=== PATIENT | male | born 1980 ===

== ENCOUNTER 2020-12-30 03:13 | Inpatient (IN) | payer OTHER ==
[2020-12-30] MEDS ORDERED: SODIUM CHLORIDE 0.9% 1000 ML 1,000 ML IV ONE ×2 (03:54→06:20)
[2020-12-30] MEDS ORDERED: ONDANSETRON 4 MG/2 ML INJ IV ONE (03:54)
[2020-12-30] MEDS ORDERED: HYDROmorphone 1 MG/1 ML INJ IV ONE ×2 (03:54→04:28)
--- NOTE | 2020-12-30 03:55 | Emergency Department Report ---
ED Abdominal Pain HPI - General Chief Complaint: Abdominal Pain Stated Complaint: STOMACH PAIN PUI?: No Time Seen by Provider: 12/30/20 03:52 Source: patient Mode of arrival: Ambulatory Limitations: No Limitations - History of Present Illness Initial Comments: Patient is a 40-year-old male that presents emergency room with complaints of abdominal pain and nausea and vomiting. Patient states has been going on for 24 hours. Patient dates symptoms worsen. Patient dates his pain is a 10-10. Patient states his symptoms started after eating new food. Patient denies blood in his vomitus. Patient denies diarrhea. Patient denies constipation. Patient states his pain is worsening. Patient states his pain is severe. Patient states his pain is stabbing. Patient denies recent travel. Patient denies recent international travel. Patient denies exposure to the novel coronavirus. Patient denies sick contacts. Patient denies fever and chills. Patient denies cough. Patient denies diarrhea. Patient denies coming in contact with anybody with symptoms of the novel coronavirus. MD Complaint: abdominal pain -: Sudden Location: diffuse Radiation: none Migration to: no migration Severity: severe Severity scale (0 -10): 10 Quality: stabbing Consistency: constant Improves With: rest Worsens With: vomiting, movement Associated Symptoms: nausea, vomiting, anorexia. denies: diarrhea, fever, chills, constipation, dysuria, hematemesis, hematochezia, melena, hematuria, syncope - Related Data Allergies Allergy/AdvReac Type Severity Reaction Status Date / Time No Known Allergies Allergy Unverified 12/30/20 03:24 ED Review of Systems ROS: Stated complaint: STOMACH PAIN Other details as noted in HPI Constitutional: denies: chills, fever Eyes: denies: eye pain, eye discharge, vision change ENT: denies: ear pain, throat pain Respiratory: denies: cough, shortness of breath, wheezing Cardiovascular: denies: chest pain, palpitations Endocrine: no symptoms reported Gastrointestinal: as per HPI, abdominal pain, nausea, vomiting. denies: diarrhea Genitourinary: denies: urgency, dysuria Musculoskeletal: denies: back pain, joint swelling, arthralgia Skin: denies: rash, lesions Neurological: denies: headache, weakness, paresthesias Psychiatric: denies: anxiety, depression Hematological/Lymphatic: denies: easy bleeding, easy bruising ED Past Medical Hx - Past Medical History Previous Medical History?: No - Surgical History Past Surgical History?: No - Family History Family history: no significant - Social History Smoking Status: Never Smoker Substance Use Type: None ED Physical Exam - General Limitations: No Limitations General appearance: alert, in no apparent distress - Head Head exam: Present: atraumatic, normocephalic - Eye Eye exam: Present: normal appearance - ENT ENT exam: Present: mucous membranes moist - Neck Neck exam: Present: normal inspection - Respiratory Respiratory exam: Present: normal lung sounds bilaterally. Absent: respiratory distress - Cardiovascular Cardiovascular Exam: Present: regular rate, normal rhythm. Absent: systolic murmur, diastolic murmur, rubs, gallop - GI/Abdominal GI/Abdominal exam: Present: soft, tenderness (Generalized tenderness to palpation), normal bowel sounds - Rectal Rectal exam: Present: deferred - Extremities Exam Extremities exam: Present: normal inspection - Back Exam Back exam: Present: normal inspection - Neurological Exam Neurological exam: Present: alert, oriented X3 - Psychiatric Psychiatric exam: Present: normal affect, normal mood - Skin Skin exam: Present: warm, dry, intact, normal color. Absent: rash ED Course Vital Signs 12/30/20 12/30/20 12/30/20 03:21 03:43 04:27 Temperature 98.6 F Pulse Rate 66 Respiratory 18 18 18 Rate Blood Pressure 120/81 O2 Sat by Pulse 94 94 Oximetry - Reevaluation(s) Reevaluation #1: I discussed all results with patient. I discussed plan of care with patient. Patient agrees with plan of care and admission. Patient to be admitted to the hospitalist service. Patient states his pain is better after the 2 doses of Dilaudid. 12/30/20 06:17 - Consultations Consultation #1: I discussed case with general surgery, Dr. Alford. Dr. Alford recommends admission to the hospital service, n.p.o. and she will see the patient today. 12/30/20 06:10 Consultation #2: Hospitalist consulted for admission. Hospitalist to admit patient. 12/30/20 06:15 ED Medical Decision Making - Lab Data Result diagrams: 12/30/20 03:30 12/30/20 03:30 - Radiology Data Radiology results: report reviewed CT ABDOMEN AND PELVIS WITH CONTRAST INDICATION / CLINICAL INFORMATION: abd pain. TECHNIQUE: Axial CT images were obtained through the abdomen and pelvis after 100 mL Omnipaque [address] scans at this location are performed using CT dose reduction for ALARA by means of automated exposure control. COMPARISON: None available. FINDINGS: LOWER CHEST: No significant abnormality. LIVER: Hepatic steatosis. BILIARY SYSTEM: No significant abnormality. PANCREAS: No significant abnormality. SPLEEN: No significant abnormality. ADRENALS: No significant abnormality. KIDNEYS and URETERS: No significant abnormality. STOMACH / BOWEL: The appendix is dilated, measuring up to 1.3 cm in diameter, with several small appendicolith noted in the lumen and surrounding periappendiceal inflammatory change. Additionally, there are multiple inflamed loops of small bowel in the right lower quadrant with associated wall thickening and perienteric inflammatory change. There is no evidence of extraluminal air or fluid collection. PERITONEUM: Small pelvic free fluid. No free air. No fluid collection. LYMPH NODES: No significant adenopathy. VASCULAR STRUCTURES: No significant abnormality. URINARY BLADDER: No significant abnormality. REPRODUCTIVE ORGANS: No significant abnormality. ADDITIONAL FINDINGS: None. SKELETAL SYSTEM: There is moderate degenerative disc disease at L3-4, with associated endplate irregularity and lucent lesions in both the L3 and L4 vertebral body, the majority of which appear contiguous with the disc space. IMPRESSION: 1. Dilated and inflamed appendix containing several appendicoliths. There are nearby inflamed loops of small bowel in the right lower quadrant suggesting enteritis. It is uncertain if the appendiceal inflammation represents primary appendicitis versus reactive inflammation from the adjacent small bowel process. 2. Degenerative change at L3-4 with associated endplate irregularity and prominent lucent lesions seen in both the L3 and L4 vertebral body, many of which appear contiguous with the disc space. These may reflect prominent Schmorl's nodes, though recommend correlation for focal tenderness in this area. If there is focal clinical concern, an MRI of the lumbar spine could be performed for further characterization. 3. Hepatic steatosis. - Medical Decision Making Patient is a 40-year-old male who presents emergency room with complaints of severe abdominal pain, nausea vomiting x1 day. Patient states that overall anything down. Patient states the pain is generalized. Patient had labs done which showed an elevated WBC. Patient then had a CT scan of the abdomen which shows an acute appendicitis versus enteritis. I discussed the case with general surgery general surgery recommends admission to the hospitalist group and general surgery will consult on the patient. Patient required high dose of Dilaudid in order to control his pain. Patient was given Zofran and fluids while in the ER. Patient made n.p.o. for possible surgery. Patient given Zosyn to cover intra-abdominal infection. Critical care time documented due to the multiple reassessments, prolonged time at the bedside, interpretation of diagnostics and labs. - Differential Diagnosis Appendicitis, abdominal pain, enteritis, gastritis,n/v Critical Care Time: Yes Critical care time in (mins) excluding proc time.: 35 Critical care attestation.: If time is entered above; I have spent that time in minutes in the direct care of this critically ill patient, excluding procedure time. Critical Care Time: 35 minutes ED Disposition Clinical Impression: Enteritis Abdominal pain Qualifiers: Abdominal location: generalized Qualified Code(s): R10.84 - Generalized abdominal pain Nausea & vomiting Qualifiers: Vomiting type: unspecified Vomiting Intractability: non-intractable Qualified Code(s): R11.2 - Nausea with vomiting, unspecified Appendicitis Qualifiers: Appendicitis type: acute appendicitis Acute appendicitis type: unspecified acute appendicitis type Qualified Code(s): K35.80 - Unspecified acute appendicitis Disposition: 09 OP ADMIT IP TO THIS HOSP Is pt being admited?: Yes Does the pt Need Aspirin: No Condition: Critical Time of Disposition: 06:18
[2020-12-30 04:26] LABS: Alanine Aminotransferase 65 units/L (7-56); Albumin 4.8 g/dL (3.9-5); BUN/Creatinine Ratio 20; Blood Urea Nitrogen 18 mg/dL (9-20); Calcium 9.9 mg/dL (8.4-10.2); Hemolysis Index 4
[2020-12-30 04:28] LABS: Basophils % (Auto) 0.2 % (0.0-1.8); Hematocrit 49.8 % (35.5-45.6); Hemoglobin 16.8 gm/dl (11.8-15.2); Lymphocytes # (Auto) 0.9 K/mm3 (1.2-5.4); Lymphocytes % (Auto) 6.2 % (13.4-35.0); Mean Corpuscular HGB Conc 34 % (32-34); Mean Corpuscular Volume 92 fl (84-94); Monocytes # (Auto) 0.6 K/mm3 (0.0-0.8); Monocytes % (Auto) 4.3 % (0.0-7.3); Platelet Count 228 K/mm3 (140-440); Red Blood Count 5.43 M/mm3 (3.65-5.03); Red Cell Distribution Width 13.1 % (13.2-15.2)
--- NOTE | 2020-12-30 05:37 | Cat Scan Report ---
CT ABDOMEN AND PELVIS WITH CONTRAST INDICATION / CLINICAL INFORMATION: abd pain. TECHNIQUE: Axial CT images were obtained through the abdomen and pelvis after 100 mL Omnipaque [address] scans at this location are performed using CT dose reduction for ALARA by means of automated exposure control. COMPARISON: None available. FINDINGS: LOWER CHEST: No significant abnormality. LIVER: Hepatic steatosis. BILIARY SYSTEM: No significant abnormality. PANCREAS: No significant abnormality. SPLEEN: No significant abnormality. ADRENALS: No significant abnormality. KIDNEYS and URETERS: No significant abnormality. STOMACH / BOWEL: The appendix is dilated, measuring up to 1.3 cm in diameter, with several small appe ndicolith noted in the lumen and surrounding periappendiceal inflammatory change. Additionally, there are multiple inflamed loops of small bowel in the right lower quadrant with associated wall thickeni ng and perienteric inflammatory change. There is no evidence of extraluminal air or fluid collection. PERITONEUM: Small pelvic free fluid. No free air. No fluid collection. LYMPH NODES: No significant adenopathy. VASCULAR STRUCTURES: No significant abnormality. URINARY BLADDER: No significant abnormality. REPRODUCTIVE ORGANS: No significant abnormality. ADDITIONAL FINDINGS: None. SKELETAL SYSTEM: There is moderate degenerative disc disease at L3-4, with associated endplate irregu larity and lucent lesions in both the L3 and L4 vertebral body, the majority of which appear contiguo us with the disc space. IMPRESSION: 1. Dilated and inflamed appendix containing several appendicoliths. There are nearby inflamed loops o f small bowel in the right lower quadrant suggesting enteritis. It is uncertain if the appendiceal in flammation represents primary appendicitis versus reactive inflammation from the adjacent small bowel process. 2. Degenerative change at L3-4 with associated endplate irregularity and prominent lucent lesions see n in both the L3 and L4 vertebral body, many of which appear contiguous with the disc space. These ma y reflect prominent Schmorl's nodes, though recommend correlation for focal tenderness in this area. If there is focal clinical concern, an MRI of the lumbar spine could be performed for further charact erization. 3. Hepatic steatosis. Signer Name: Claudine Hay MD Signed: 12/30/2020 5:32 AM Workstation Name: [id number]
[2020-12-30] MEDS ORDERED: PIPERACIL/TAZOBACTA 4.5/NS 100 4.5 GM/100 ML VIAL IV ONE (06:16)
[2020-12-30 06:45] LABS: INR 0.99 (0.87-1.13)
[2020-12-30 06:46] LABS: Partial Thromboplastin Time 29.6 Sec. (24.2-36.6)
[2020-12-30] MEDS ORDERED: HYDROmorphone 1 MG/1 ML INJ ONE ×2 (06:55→09:35)
--- NOTE | 2020-12-30 09:17 | Consultation ---
History of Present Illness Consult date: 12/30/20 Reason for consult: abdominal pain - History of present illness History of present illness: 40 year old male presented to ED with a 1-2 day of worsening abdominal pain, n/v. He said the pain was 10/10 and eventually localized to the RLQ. He denies having this pain before. A CT showed inflamed, dilated appendix with appendicoliths suggestive appendicitis. Past History Past Medical History: No medical history Past Surgical History: No surgical history Medications and Allergies Allergies Allergy/AdvReac Type Severity Reaction Status Date / Time No Known Allergies Allergy Unverified 12/30/20 03:24 Active Meds: Active Medications Sodium Chloride (Nacl 0.9% 1000 Ml) 1,000 mls @ 250 mls/hr IV ONCE ONE Stop: 12/30/20 10:19 Last Admin: 12/30/20 07:03 Dose: 250 mls/hr Documented by: Review of Systems - Constitutional poor appetite - Cardiovascular no chest pain - Respiratory no cough, no shortness of breath - Gastrointestinal abdominal pain, nausea, vomiting - Genitourinary no dysuria Exam Vital Signs Temp Pulse Resp BP Pulse Ox 98.6 F 66 18 120/81 94 12/30/20 03:21 12/30/20 03:21 12/30/20 03:21 12/30/20 03:21 12/30/20 03:21 - General physical appearance Positive: well developed, well nourished, no distress, moderate pain - Respiratory Positive: normal expansion, normal respiratory effort - Cardiovascular Heart Sounds: Present: S1 & S2 - Abdomen Abdomen: Present: soft, tender. Absent: distended, guarding, rigid, surgical scars Results - Labs 12/30/20 03:30 12/30/20 03:30 Abnormal lab results 12/30/20 12/30/20 Range/Units 03:30 03:30 WBC 15.1 H (4.5-11.0) K/mm3 RBC 5.43 H (3.65-5.03) M/mm3 Hgb 16.8 H (11.8-15.2) gm/dl Hct 49.8 H (35.5-45.6) % RDW 13.1 L (13.2-15.2) % Lymph % (Auto) 6.2 L (13.4-35.0) % Lymph # (Auto) 0.9 L (1.2-5.4) K/mm3 Seg Neutrophils % 89.3 H (40.0-70.0) % Seg Neutrophils # 13.5 H (1.8-7.7) K/mm3 Sodium 136 L (137-145) mmol/L Chloride 97.1 L (98-107) mmol/L Glucose 128 H (75-100) mg/dL ALT 65 H (7-56) units/L Diabetes panel 12/30/20 Range/Units 03:30 Sodium 136 L (137-145) mmol/L Potassium 3.7 (3.6-5.0) mmol/L Chloride 97.1 L (98-107) mmol/L Carbon Dioxide 24 (22-30) mmol/L BUN 18 (9-20) mg/dL Creatinine 0.9 (0.8-1.3) mg/dL Glucose 128 H (75-100) mg/dL Calcium 9.9 (8.4-10.2) mg/dL AST 32 (5-40) units/L ALT 65 H (7-56) units/L Alkaline Phosphatase 105 (35-129) units/L Total Protein 7.5 (6.3-8.2) g/dL Albumin 4.8 (3.9-5) g/dL Calcium panel 12/30/20 Range/Units 03:30 Calcium 9.9 (8.4-10.2) mg/dL Albumin 4.8 (3.9-5) g/dL Pituitary panel 12/30/20 Range/Units 03:30 Sodium 136 L (137-145) mmol/L Potassium 3.7 (3.6-5.0) mmol/L Chloride 97.1 L (98-107) mmol/L Carbon Dioxide 24 (22-30) mmol/L BUN 18 (9-20) mg/dL Creatinine 0.9 (0.8-1.3) mg/dL Glucose 128 H (75-100) mg/dL Calcium 9.9 (8.4-10.2) mg/dL Adrenal panel 12/30/20 Range/Units 03:30 Sodium 136 L (137-145) mmol/L Potassium 3.7 (3.6-5.0) mmol/L Chloride 97.1 L (98-107) mmol/L Carbon Dioxide 24 (22-30) mmol/L BUN 18 (9-20) mg/dL Creatinine 0.9 (0.8-1.3) mg/dL Glucose 128 H (75-100) mg/dL Calcium 9.9 (8.4-10.2) mg/dL Total Bilirubin 1.10 (0.1-1.2) mg/dL AST 32 (5-40) units/L ALT 65 H (7-56) units/L Alkaline Phosphatase 105 (35-129) units/L Total Protein 7.5 (6.3-8.2) g/dL Albumin 4.8 (3.9-5) g/dL - Imaging CT scan - abdomen: report reviewed, image reviewed CT scan - pelvis: report reviewed, image reviewed Assessment and Plan 40 year old male with clinical appendicitis. Afebrile, stable with leukocytosis. Pt is consented for laparoscopic appendectomy. He signed informed consent with a shop firer/fireman. If he recovers well can be discharged tomorrow.
[2020-12-30] MEDS ORDERED: LIDOCAINE 1%/EPINEPHRINE 1:100,000 VIAL (20 ML) INFILTRATI ONE ×2 (09:20→10:28)
[2020-12-30] MEDS ORDERED: BUPIVACAINE/PF (0.5%) 5 MG/1 ML 30 ML VIAL INFILTRATI ONE ×2 (09:20→10:28)
--- NOTE | 2020-12-30 09:32 | Anesthesia Consultation ---
Anesthesia Consult and Med Hx Date of service: 12/30/20 - Airway Anesthetic Teeth Evaluation: Good (Loose right upper incisor) ROM Head & Neck: Adequate Mental/Hyoid Distance: Adequate Mallampati Class: Class II Intubation Access Assessment: Probably Good - Pulmonary Exam CTA: Yes - Pre-Operative Health Status ASA Pre-Surgery Classification: ASA2 Proposed Anesthetic Plan: General - Pulmonary Hx Smoking: Yes Hx Asthma: No Hx Respiratory Symptoms: No Hx Sleep Apnea: No - Cardiovascular System Hx Hypertension: No Hx Heart Attack/AMI: No - Central Nervous System Hx Neuromuscular Disorder: No Hx Seizures: No Hx Psychiatric Problems: No - Endocrine Hx Renal Disease: No Hx Liver Disease: No Hx Insulin Dependent Diabetes: No Hx Non-Insulin Dependent Diabetes: No Hx Thyroid Disease: No - Hematic Hx Anemia: No - Other Systems Hx Alcohol Use: Yes Hx Obesity: Yes - Additional Comments Anesthesia Medical History Comments: Patient denied previous anesthesia complication
--- NOTE | 2020-12-30 09:33 | Anesthesia Day of Surgery ---
Anesthesia Day of Surgery - Day of Surgery Patient Examined: Yes Patient H&P Reviewed: Yes Patient is NPO: Yes Beta Blockers: No Cardiac Clearance: No Pulmonary Clearance: No Justin's Test: N/A
[2020-12-30] MEDS ORDERED: LIDOCAINE MPF (2%) 20 MG/1 ML VIAL 5 ML ONE (09:34)
[2020-12-30] MEDS ORDERED: ROCURONIUM 50 MG/5 ML INJ IV ONE ×2 (09:34→10:37)
[2020-12-30] MEDS ORDERED: dexAMETHasone 20 MG/5 ML VIAL ONE (09:34)
[2020-12-30] MEDS ORDERED: ONDANSETRON 4 MG/2 ML INJ ONE (09:34)
[2020-12-30] MEDS ORDERED: SUCCINYLCHOLINE CHLORIDE 200 MG/10 ML INJ MDV ONE (09:34)
[2020-12-30] MEDS ORDERED: propofoL 200 MG/20 ML VIAL IV ONE (09:35)
[2020-12-30] MEDS ORDERED: LACTATED RINGERS 1,000 ML ONE ×2 (10:16→11:12)
[2020-12-30] MEDS ORDERED: SODIUM CHLORIDE 0.9% IRRIG SOLN 2000 ML IR ONE (10:29)
[2020-12-30] MEDS ORDERED: SODIUM CHLORIDE 0.9% IRR 1,500 ML BOTTLE IR ONE (10:29)
[2020-12-30] MEDS ORDERED: KETOROLAC 30 MG/1 ML INJ ONE ×2 (11:00)
[2020-12-30] MEDS ORDERED: NEOSTIGMINE 10MG/10 ML INJ MDV ONE (11:12)
[2020-12-30] MEDS ORDERED: GLYCOPYRROLATE 0.4 MG/2 ML INJ ONE (11:12)
--- NOTE | 2020-12-30 11:23 | Operative Report ---
Operative Report Operative Report: Date: 12/30/2020 Primary Surgeon: Connor Alford MD Procedure: Laparoscopic Appendectomy Anesthesia: GETA Pre-Operative Diagnosis: acute appendicitis Post-Operative Diagnosis: Same Indications for Procedure: 40 year old male presented to ED with 2 day hx of acute abdominal pain with nausea vomiting. CT scan showed a dilated inflamed appendix with appendicolith. Patient had clinical and radiographic findings suggestive of acute appendicitis with leukocytosis. With the aid of an lunchroom operator the patient was consented for laparoscopic appendectomy. He expressed understanding of the risk and benefits. Description of Procedure(s): The patient was brought to the operating room and underwent general anesthesia after lower extremity SCD were placed. The abdomen was prepped and draped in the standard fashion. IV antibiotics were given and a time out was performed. Using a veress needle via a stab incision in the umbilicus, the abdomen was insuflated to a pressure of 15mmHg. Using optivew technique, a 5mm trocar was placed just superior and to the left of the umbilicus. There was no gross injury noted to any intra-abdominal structures. After which working trocars were placed under direct visualization. A 12 mm trocar was placed in left mid abdomen, and a 5 mm trocar was inserted in the suprapubic area. The patient was placed in slight Trendelenburg position and tilted towards her left side. The cecum was identified and mobilized, as well as the terminal ileum. There was noted to be murky fluid and fibrinous exudate in the right lower quadrant, along with hyperemia of adjacent small bowel loops. There were no gross signs of perforation or well-formed abscess. The appendix was noted to be retrocecal. The mesoappendix was transected with the LigaSure. The appendix was then taken at its base with a blue load on a laparoscopic stapler. The staple line was inspected and found to be hemostatically sound and secure. There was moderate irrigation of the right lower quadrant and pelvic area where the murky fluid was most appreciated. The appendix was placed in Endo Catch bag. A 19 Gabonese round drain was placed into the pelvis and exited out of the suprapubic incision. It was then retrieved via the 12 mm trocar. The fascia was then closed using a O-vicryl and a suture passer device. Trocars removed under direct visualization. The insufflation was then terminated. The skin incisions were closed using 4-0 Monocryl sutures. All the wounds dressed with dermabond. The patient tolerated the procedure well, was extubated and taken to the recovery room in satisfactory condition. Specimen: appendix Complications: none immediate EBl: minimal Findings: Exudative appendicitis with no gross perforation appreciated
[2020-12-30] MEDS ORDERED: ONDANSETRON 4 MG/2 ML INJ IV PRN (11:30)
[2020-12-30] MEDS ORDERED: HYDROmorphone 1 MG/1 ML INJ IV PRN (11:30)
--- NOTE | 2020-12-30 11:58 | Post Anesthesia Evaluation ---
- Post Anesthesia Evaluation Patient Participated: Yes Airway Patent: Yes Stable Respiratory Function: Yes Nausea/Vomiting: No Temp > 96.8F: Yes Pain Manageable: Yes Adequeate Hydration: Yes Anesthesia Complications: No Block Receding Appropriately: Not Applicable Patient on Ventilator: No
[2020-12-30] MEDS ORDERED: oxyCODONE /ACETAMINOPHEN 5-325MG TAB PO PRN (12:11)
--- NOTE | 2020-12-30 13:13 | History and Physical Report ---
History of Present Illness Date of examination: 12/30/20 Date of admission: 12/30/20 06:15 Chief complaint: Abdominal pain nausea and vomiting History of present illness: Patient is a 40-year-old male with no prior medical history presents emergency room today with complaints of abdominal pain and nausea and vomiting for 24 hours. Patient states his abdominal pain is 10 out of 10, sharp crampy, diffuse, without any aggravating or relieving factors, associated with nausea and vomiting. Patient denies any bloody vomit. CT abdomen pelvis in the ER keenan wed Dilated and inflamed appendix containing several appendicoliths, nearby inflamed loops of small bowel in the right lower quadrant suggesting enteritis. Patient was placed on empiric antibiotics, IV analgesic, IV fluid, consulted general surgeon in the ER for emergent laparoscopic appendectomy. Patient is being admitted by hospitalist service for further evaluation and management. Past medical History: none Past surgical History: none Social History: Lives with family, denies any smoking, drinking and elicit drug abuse. Family History: No Significant h/o heart disease, diabetes stroke or cancer Constitutional: denies: chills, fever Eyes: denies: eye pain, eye discharge, vision change ENT: denies: ear pain, throat pain Respiratory: denies: cough, shortness of breath, wheezing Cardiovascular: denies: chest pain, palpitations Endocrine: no symptoms reported Gastrointestinal: as per HPI, abdominal pain, nausea, vomiting. denies: diarrhea Genitourinary: denies: urgency, dysuria Musculoskeletal: denies: back pain, joint swelling, arthralgia Skin: denies: rash, lesions Neurological: denies: headache, weakness, paresthesias Psychiatric: denies: anxiety, depression Hematological/Lymphatic: denies: easy bleeding, easy bruising Past History Past Medical History: No medical history Past Surgical History: No surgical history Medications and Allergies Allergies Allergy/AdvReac Type Severity Reaction Status Date / Time No Known Allergies Allergy Unverified 12/30/20 03:24 Home Medications Medication Instructions Recorded Confirmed Last Taken Type Amoxicillin/Potassium Clav 1 each PO BID #10 tablet 12/31/20 Unknown Rx [Augmentin 875-125 Tablet] HYDROcodone/APAP 5-325 [[place] 1 each PO Q6HR PRN #14 tablet 12/31/20 Unknown Rx 5/325] Active Meds: Active Medications Hydromorphone HCl (Hydromorphone 1 Mg/1 Ml Inj) 0.5 mg IV Q10MIN PRN PRN Reason: Pain , Severe (7-10) Stop: 12/31/20 11:29 Piperacillin Sod/Tazobactam Sod (Zosyn/Ns 4.5gm/100ml) 4.5 gm in 100 mls @ 200 mls/hr IV Q6H STEVE; Protocol Lactated Ringer's (Lactated Ringers) 1,000 mls @ 125 mls/hr IV DIRECT STEVE Ketorolac Tromethamine (Ketorolac 30 Mg/1 Ml Inj) 30 mg IV Q8H STEVE Stop: 01/04/21 12:10 Morphine Sulfate (Morphine 2 Mg/1 Ml Inj) 2 mg IV Q4H PRN PRN Reason: Pain , Severe (7-10) Ondansetron HCl (Ondansetron 4 Mg/2 Ml Inj) 4 mg IV ONCE PRN PRN Reason: Nausea And Vomiting Oxycodone/Acetaminophen (Oxycodone /Acetaminophen 5-325mg Tab) 2 tab PO Q4H PRN PRN Reason: Pain, Moderate (4-6) Exam - Physical Exam Narrative exam: GENERAL: well-developed and well-nourished lying on bed appeared to be in no discomfort. HEENT: Normocephalic. Atraumatic. No conjunctival congestion or icterus. Patient has moist mucous membranes. NECK: Supple. Trachea midline. CHEST/LUNGS: Clear to auscultated bilaterally, breathing nonlabored. No wheezes crackles or rhonchi. HEART/CARDIOVASCULAR: Regular in rate and rhythm. S1 and S2 positive. ABDOMEN: Abdomen is soft, nontender. Patient has normal bowel sounds. SKIN: There is no rash. Warm and dry. NEURO: No focal motor deficit. Follows command. MUSCULOSKELETAL: No joint effusion or tenderness. EXTRIMITY: No edema, no cyanosis or clubbing. PSYCH: Cooperative. - Constitutional Vitals: Temp Pulse Resp BP Pulse Ox 97.7 F 75 20 103/65 96 12/30/20 12:15 12/30/20 12:15 12/30/20 12:15 12/30/20 12:15 12/30/20 12:15 Results - Labs CBC & Chem 7: 12/31/20 07:57 12/31/20 07:57 Labs: Abnormal lab results 12/30/20 12/30/20 Range/Units 03:30 03:30 WBC 15.1 H (4.5-11.0) K/mm3 RBC 5.43 H (3.65-5.03) M/mm3 Hgb 16.8 H (11.8-15.2) gm/dl Hct 49.8 H (35.5-45.6) % RDW 13.1 L (13.2-15.2) % Lymph % (Auto) 6.2 L (13.4-35.0) % Lymph # (Auto) 0.9 L (1.2-5.4) K/mm3 Seg Neutrophils % 89.3 H (40.0-70.0) % Seg Neutrophils # 13.5 H (1.8-7.7) K/mm3 Sodium 136 L (137-145) mmol/L Chloride 97.1 L (98-107) mmol/L Glucose 128 H (75-100) mg/dL ALT 65 H (7-56) units/L - Imaging and Cardiology CT scan - abdomen: report reviewed Assessment and Plan Acute appendicitis -General surgeon consulted in the ER -Patient was given IV fluid, IV Dilaudid, started on empirically on iv Zosyn -Patient taken to the OR for emergent appendectomy -Continue to follow -Mild hyponatremia, continue IV fluid Abdominal pain, nausea and vomiting -Due to acute appendicitis, treat with IV analgesic, IV antiemetic -General surgery consulted for appendectomy SIRS, due to acute appendicitis, continue empiric Zosyn for now L3-L4 vertebral body lesion, patient need MRI of the lumbar spine for further characterization -Could be done as an outpatient following appendectomy DVT prophylaxis, will provide Lovenox following surgery CT abdomen pelvis: 1. Dilated and inflamed appendix containing several appendicoliths. There are nearby inflamed loops of small bowel in the right lower quadrant suggesting enteritis. It is uncertain if the appendiceal inflammation represents primary appendicitis versus reactive inflammation from the adjacent small bowel process. 2. Degenerative change at L3-4 with associated endplate irregularity and prom inent lucent lesions seen in both the L3 and L4 vertebral body, many of which appear contiguous with the disc space. These may reflect prominent Schmorl's nodes, though recommend correlation for focal tenderness in this area. If there is focal clinical concern, an MRI of the lumbar spine could be performed for further characterization. 3. Hepatic steatosis.
[2020-12-30] MEDS: LACTATED RINGERS 1,000 ML IV SCH (17:00)
[2020-12-30] MEDS: KETOROLAC 30 MG/1 ML INJ IV SCH (17:00)
[2020-12-30] MEDS: PIPERACIL/TAZOBACTA 4.5/NS 100 4.5 GM/100 ML VIAL IV SCH ×2 (17:00→23:00)
[2020-12-31] MEDS: KETOROLAC 30 MG/1 ML INJ IV SCH ×4 (01:00→20:48)
[2020-12-31] MEDS: LACTATED RINGERS 1,000 ML IV SCH (04:00)
[2020-12-31] MEDS: MORPHINE 2 MG/1 ML INJ IV PRN ×2 (05:30→17:25)
[2020-12-31] MEDS: PIPERACIL/TAZOBACTA 4.5/NS 100 4.5 GM/100 ML VIAL IV SCH ×4 (05:33→20:48)
[2020-12-31 08:29] LABS: Basophils % (Auto) 0.2 % (0.0-1.8); Hematocrit 39.3 % (35.5-45.6); Hemoglobin 13.4 gm/dl (11.8-15.2); Lymphocytes # (Auto) 1.1 K/mm3 (1.2-5.4); Lymphocytes % (Auto) 9.8 % (13.4-35.0); Mean Corpuscular HGB Conc 34 % (32-34); Mean Corpuscular Volume 93 fl (84-94); Monocytes # (Auto) 0.3 K/mm3 (0.0-0.8); Platelet Count 140 K/mm3 (140-440); Red Blood Count 4.24 M/mm3 (3.65-5.03)
[2020-12-31 08:49] LABS: BUN/Creatinine Ratio 15; Blood Urea Nitrogen 16 mg/dL (9-20); Calcium 8.2 mg/dL (8.4-10.2); Hemolysis Index 8
--- NOTE | 2020-12-31 11:36 | Discharge Summary ---
Providers - Providers Date of Admission: 12/30/20 06:15 Date of discharge: 01/02/21 Attending physician: EDNA TERRAZAS 12/30/20 06:14 Consult to Physician [CONS] Routine Comment: Dr. Yap spoke with Dr. Alford @ [phone] Consulting Provider: JONAS ALFORD Physician Instructions: Reason For Exam: Appendicitis Primary care physician: POLICE LIEUTENANT PATROL Hospitalization Condition: Critical Hospital course: Patient is a 40-year-old male with no prior medical history presents emergency room today with complaints of abdominal pain and nausea and vomiting for 24 hours. Patient states his abdominal pain is 10 out of 10, sharp crampy, diffuse, without any aggravating or relieving factors, associated with nausea and vomiting. Patient denies any bloody vomit. CT abdomen pelvis in the ER showed Dilated and inflamed appendix containing several appendicoliths, nearby inflamed loops of small bowel in the right lower quadrant suggesting enteritis. Patient was placed on empiric antibiotics, IV analgesic, IV fluid, consulted general surgeon in the ER for emergent laparoscopic appendectomy. Patient was admitted for further evaluation and management. Patient underwent emergent laparoscopic appendectomy with TESSA drain, he tolerated the procedure well. Advance diet as tolerated. CT abdomen pelvis also noted questionable L3-L4 vertebral body lesion and recommended MRI of the lumbar spine by radiologist. MRI lumbar spine showed no acute finding except degenerative changes. General surgery recommended to watch patient couple more days following discharge as patient had exudative appendicitis which has high risks for developing ileus following surgery. Patient was slowly advanced to clear liquid diet then full liquid diet and he was able to tolerate. TESSA drain was removed before discharge. Patient was then discharged home in stable condition with outpatient follow-up. CT abdomen pelvis: 1. Dilated and inflamed appendix containing several appendicoliths. There are nearby inflamed loops of small bowel in the right lower quadrant suggesting enteritis. It is uncertain if the appendiceal inflammation represents primary appendicitis versus reactive inflammation from the adjacent small bowel process. 2. Degenerative change at L3-4 with associated endplate irregularity and prominent lucent lesions seen in both the L3 and L4 vertebral body, many of which appear contiguous with the disc space. These may reflect prominent Schmorl's nodes, though recommend correlation for focal tenderness in this area. If there is focal clinical concern, an MRI of the lumbar spine could be performed for further characterization. 3. Hepatic steatosis. MRI LUMBER SPINE: 1. There is notable irregularity of the L3-4 disc space and adjacent vertebral bodies which correlates with the earlier CT of abdomen of 12/30/2020. However, the heterogeneous signal would be more indicative of chronic degenerative process with only minimal edema. 2. There are milder degenerative the changes involving lumbar spine as detailed above without significant stenosis. 3. The findings correlate with the earlier CT demonstrating inflammatory changes within the visualized right lower quadrant and along the right psoas muscle as described. Daily clinical course: 12/31: Continue clear liquid diet, per general surgeon patient is very highly likely to develop postoperative ileus. Plan for repeat abdominal scan tomorrow. Continue clear liquid diet, empiric antibiotics. 01/01: Advance to full liquid diet today, if tolerates well possible DC tomorrow. Plan to pull down TESSA drain before discharge 01/02: Patient tolerating full liquid diet, clinically no sign for developing ileus. TESSA drain was removed, patient was then discharged home in stable condition. He will follow-up with Dr. Alford in 2 weeks. Disposition: DC-01 TO HOME OR SELFCARE Final Discharge Diagnosis (Prints w/discharge instructions): Acute exudative appendicitis. SIRS. Hyponatremia. L3-L4 vertebral degenerative disease Time spent for discharge: 34 minutes Core Measure Documentation - Palliative Care Palliative Care/ Comfort Measures: Not Applicable - Core Measures Any of the following diagnoses?: none Exam - Physical Exam Narrative exam: GENERAL: well-developed and well-nourished male lying on bed appeared to be in no discomfort. HEENT: Normocephalic. Atraumatic. No conjunctival congestion or icterus. Patient has moist mucous membranes. NECK: Supple. Trachea midline. CHEST/LUNGS: Clear to auscultated bilaterally, breathing nonlabored. No wheezes crackles or rhonchi. HEART/CARDIOVASCULAR: Regular in rate and rhythm. S1 and S2 positive. ABDOMEN: Abdomen is soft. Patient has normal bowel sounds. SKIN: There is no rash. Warm and dry. NEURO: No focal motor deficit. Follows command. MUSCULOSKELETAL: No joint effusion or tenderness. EXTRIMITY: No edema, no cyanosis or clubbing. PSYCH: Cooperative. - Constitutional Vitals: Temp Pulse Resp BP Pulse Ox 98.8 F 60 18 93/58 98 12/31/20 07:56 12/31/20 07:56 12/31/20 07:56 12/31/20 07:56 12/31/20 07:56 Plan Activity: advance as tolerated Weight Bearing Status: Weight Bear as Tolerated Diet: advance as tolerated Additional Instructions: Follow-up with general surgeon in 2 weeks. Advance diet as tolerated Follow up with: PRIMARY CARE, [Primary Care Provider] - 7 Days JONAS ALFORD MD [Staff Physician] - 7 Days Prescriptions: Amoxicillin/Potassium Clav [Augmentin 875-125 Tablet] 1 each PO BID #10 tablet HYDROcodone/APAP 5-325 [[place] 5/325] 1 each PO Q6HR PRN #14 tablet PRN Reason: Pain
[2020-12-31] MEDS ORDERED: POTASSIUM CHLORIDE ER 20 MEQ TAB PO ONE (12:00)
--- NOTE | 2020-12-31 16:56 | Progress Note ---
Assessment and Plan 40 yo M s/p laparoscopic appendectomy, POD 1 Pt stable, intraop findings suggest he will have an ileus Plan: 1. continue clear liquid diet, do not advance 2. gentle IVF - changed to maintenance 3. prn nausea and pain control 4. DVT ppx 5. TESSA drain to bulb suction - record output q shift 6. OOB/patient encouraged to walk around room 7. IS/pulm toilet 8. repeat BMP in am and replace lytes as needed Not cleared for dc from surgery standpoint. Will continue to follow. Plan discussed with TAMAR [place]. Thank you, please call with questions. Subjective Date of service: 12/31/20 Narrative: Pt seen and examined. Has not been OOB. c/o abdominal fullness and pain at incisions. Pain of incisions controlled well with pain medications. No n/v. Tolerating clear liquids. Objective Vital Signs - 12hr 12/31/20 12/31/20 12/31/20 05:30 05:33 06:45 Temperature 97.4 F L Pulse Rate 55 L Respiratory 18 18 18 Rate Blood Pressure 106/70 O2 Sat by Pulse 98 Oximetry 12/31/20 12/31/20 07:56 11:46 Temperature 98.8 F 98.0 F Pulse Rate 60 61 Respiratory 18 18 Rate Blood Pressure 93/58 108/74 O2 Sat by Pulse 98 98 Oximetry - General physical appearance Narrative Exam: Gen: AAOx3. Mild distress due to pain CV: S1, S2+ Resp: even and unlabored Abd: soft, distended in epigastrum. Incisions c/d/i. Tessa drain seropurulent. No r/r/g Ext: no c/c/e - Labs 12/31/20 07:57 12/31/20 07:57 Diabetes panel 12/31/20 Range/Units 07:57 Sodium 139 (137-145) mmol/L Potassium 3.4 L (3.6-5.0) mmol/L Chloride 105.1 (98-107) mmol/L Carbon Dioxide 27 (22-30) mmol/L BUN 16 (9-20) mg/dL Creatinine 1.1 (0.8-1.3) mg/dL Glucose 126 H (75-100) mg/dL Calcium 8.2 L D (8.4-10.2) mg/dL Calcium panel 12/31/20 Range/Units 07:57 Calcium 8.2 L D (8.4-10.2) mg/dL Pituitary panel 12/31/20 Range/Units 07:57 Sodium 139 (137-145) mmol/L Potassium 3.4 L (3.6-5.0) mmol/L Chloride 105.1 (98-107) mmol/L Carbon Dioxide 27 (22-30) mmol/L BUN 16 (9-20) mg/dL Creatinine 1.1 (0.8-1.3) mg/dL Glucose 126 H (75-100) mg/dL Calcium 8.2 L D (8.4-10.2) mg/dL Adrenal panel 12/31/20 Range/Units 07:57 Sodium 139 (137-145) mmol/L Potassium 3.4 L (3.6-5.0) mmol/L Chloride 105.1 (98-107) mmol/L Carbon Dioxide 27 (22-30) mmol/L BUN 16 (9-20) mg/dL Creatinine 1.1 (0.8-1.3) mg/dL Glucose 126 H (75-100) mg/dL Calcium 8.2 L D (8.4-10.2) mg/dL
[2020-12-31] MEDS: D5W/0.45% NACL/KCL 20 MEQ 20 MEQ/1,000 ML BAG IV SCH (17:25)
[2021-01-01] MEDS: PIPERACIL/TAZOBACTA 4.5/NS 100 4.5 GM/100 ML VIAL IV SCH ×3 (01:15→17:35)
[2021-01-01] MEDS: KETOROLAC 30 MG/1 ML INJ IV SCH ×3 (03:27→21:48)
[2021-01-01] MEDS: D5W/0.45% NACL/KCL 20 MEQ 20 MEQ/1,000 ML BAG IV SCH ×2 (06:23→18:11)
[2021-01-01 08:24] LABS: BUN/Creatinine Ratio 11; Blood Urea Nitrogen 11 mg/dL (9-20); Calcium 8.4 mg/dL (8.4-10.2); Hemolysis Index 10
--- NOTE | 2021-01-01 10:27 | Magnetic Resonance Report ---
MR lumbar spine wo con INDICATION / CLINICAL INFORMATION: 40 years Male; MAIN. TECHNIQUE: Multisequence, multiplanar images of the lumbar spine were obtained. COMPARISON: None available. FINDINGS: ALIGNMENT: There is no significant spondylolisthesis or scoliosis of the lumbar spine. VERTEBRAE:There is notable irregularity of the L3-4 disc space and endplates with heterogeneous signa l involving adjacent vertebral bodies which correlate with the earlier CT abdomen of 12/30/2020. Howeve r, the signal includes diffuse increased T1 and T2-weighted signal indicative of more chronic reactiv e the changes at. There is slight edema posteriorly on the STIR imaging though the overall appearance would be that of more chronic process with sclerosis anteriorly. Mild endplate edema is seen on the right at L4-5. There is no clear evidence of acute compression fracture. VISUALIZED SPINAL CORD: The distal spinal cord demonstrate appropriate signal intensity and terminate s at T12-L1. [id number] ANALYSIS: L1-2: No significant abnormality. L2-3: There is a slight disc bulge on the right without significant spinal stenosis or foraminal narr owing L3-4: There is notable irregularity of the disc space at this level as detailed above. However, there is no disc protrusion or significant spinal stenosis at. The neural foramen are patent. L4-5: There is a minimal a disc bulge and mild facet joint arthropathy without significant central sp inal stenosis at. There is mild neural foraminal narrowing bilaterally. L5-S1: There is a slight central disc bulge and small annular tear without significant central spinal stenosis at. There also appear to be mild facet joint changes with minimal foraminal narrowing. PARASPINAL SOFT TISSUES: There are inflammatory changes involving visualized right lower quadrant of the abdomen which correlates with the earlier CT. There are also be mild associated reactive changes and mass effect upon the visualized right psoas muscle. ADDITIONAL FINDINGS: No definitive epidural collections are identified at. IMPRESSION: 1. There is notable irregularity of the L3-4 disc space and adjacent vertebral bodies which correlate s with the earlier CT of abdomen of 12/30/2020. However, the heterogeneous signal would be more indicat mariajose of chronic degenerative process with only minimal edema. 2. There are milder degenerative the changes involving lumbar spine as detailed above without signifi cant stenosis. 3. The findings correlate with the earlier CT demonstrating inflammatory changes within the visualize d right lower quadrant and along the right psoas muscle as described. Signer Name: Janes Wray MD Signed: 01/01/2021 10:22 AM Workstation Name: [id number]
--- NOTE | 2021-01-01 10:50 | Progress Note ---
Assessment and Plan POD#2 s/p lap appy for acute suppurative appendicitis. Stable with febrile episode last night. Clinically resolving ileus. Will advance to full liquids and continue abx. If pt remains afebrile for 24 hours and tolerates diet can be discharged tomorrow. Plan to remove drain before discharge. Subjective Date of service: 01/01/21 Patient Reports: Positive: still having pain, pain is less, tolerating liquids well, flatus (no acute events overnight except fever of 102. pt denies n/v) Objective Vital Signs - 12hr 12/31/20 01/01/21 01/01/21 23:33 05:09 07:22 Temperature 99.2 F 98.3 F 97.9 F Pulse Rate 61 57 L 65 Respiratory 18 18 18 Rate Blood Pressure 137/89 Blood Pressure 100/62 110/69 [Left] O2 Sat by Pulse 94 95 97 Oximetry - General physical appearance well developed, well nourished, no distress, moderate pain - Respiratory normal expansion, normal respiratory effort - Abdomen soft, not guarding, not rigid, other (incisions c/d/i, appropriately tender to palpation, TESSA drain with scant pink serous fluid) - Labs 12/31/20 07:57 01/01/21 07:32 Diabetes panel 01/01/21 Range/Units 07:32 Sodium 137 (137-145) mmol/L Potassium 3.8 (3.6-5.0) mmol/L Chloride 101.9 (98-107) mmol/L Carbon Dioxide 24 (22-30) mmol/L BUN 11 (9-20) mg/dL Creatinine 1.0 (0.8-1.3) mg/dL Glucose 104 H (75-100) mg/dL Calcium 8.4 (8.4-10.2) mg/dL Calcium panel 01/01/21 Range/Units 07:32 Calcium 8.4 (8.4-10.2) mg/dL Pituitary panel 01/01/21 Range/Units 07:32 Sodium 137 (137-145) mmol/L Potassium 3.8 (3.6-5.0) mmol/L Chloride 101.9 (98-107) mmol/L Carbon Dioxide 24 (22-30) mmol/L BUN 11 (9-20) mg/dL Creatinine 1.0 (0.8-1.3) mg/dL Glucose 104 H (75-100) mg/dL Calcium 8.4 (8.4-10.2) mg/dL Adrenal panel 01/01/21 Range/Units 07:32 Sodium 137 (137-145) mmol/L Potassium 3.8 (3.6-5.0) mmol/L Chloride 101.9 (98-107) mmol/L Carbon Dioxide 24 (22-30) mmol/L BUN 11 (9-20) mg/dL Creatinine 1.0 (0.8-1.3) mg/dL Glucose 104 H (75-100) mg/dL Calcium 8.4 (8.4-10.2) mg/dL
--- NOTE | 2021-01-01 17:34 | Progress Note ---
Assessment and Plan Acute appendicitis -General surgeon consulted in the ER -Patient was given IV fluid, IV Dilaudid, started on empirically on iv Zosyn -s/p emergent appendectomy with TESSA drain -Continue to follow clinically, continue clear liquid diet -Mild hyponatremia, continue IV fluid Abdominal pain, nausea and vomiting -Due to acute appendicitis, treat with IV analgesic, IV antiemetic -General surgery consulted for appendectomy SIRS, due to acute appendicitis, continue empiric Zosyn for now L3-L4 vertebral body lesion, patient need MRI of the lumbar spine for further characterization DVT prophylaxis, will provide Lovenox following surgery CT abdomen pelvis: 1. Dilated and inflamed appendix containing several appendicoliths. There are nearby inflamed loops of small bowel in the right lower quadrant suggesting enteritis. It is uncertain if the appendiceal inflammation represents primary appendicitis versus reactive inflammation from the adjacent small bowel process. 2. Degenerative change at L3-4 with associated endplate irregularity and prominent lucent lesions seen in both the L3 and L4 vertebral body, many of which appear contiguous with the disc space. These may reflect prominent Schmorl's nodes, though recommend correlation for focal tenderness in this area. If there is focal clinical concern, an MRI of the lumbar spine could be performed for further characterization. 3. Hepatic steatosis. Daily clinical course: 12/31: Continue clear liquid diet, per general surgeon patient is very highly likely to develop postoperative ileus. Plan for repeat abdominal scan tomorrow. Continue clear liquid diet, empiric antibiotics. Subjective Date of service: 12/31/20 Interval history: Patient seen and examined. Medical records and medication list reviewed. No acute event overnight noted by the RN. Patient denies any chest pain or difficulty breathing. Patient is tolerating clear liquid diet. Complains of abdominal fullness, discussed with general surgeon Discussed plan of care at bedside with patient. Objective - Exam Narrative Exam: GENERAL: well-developed and well-nourished male lying on bed appeared to be in no discomfort. HEENT: Normocephalic. Atraumatic. No conjunctival congestion or icterus. Patie nt has moist mucous membranes. NECK: Supple. Trachea midline. CHEST/LUNGS: Clear to auscultated bilaterally, breathing nonlabored. No wheezes crackles or rhonchi. HEART/CARDIOVASCULAR: Regular in rate and rhythm. S1 and S2 positive. ABDOMEN: Abdomen is soft. Patient has normal bowel sounds. SKIN: There is no rash. Warm and dry. NEURO: No focal motor deficit. Follows command. MUSCULOSKELETAL: No joint effusion or tenderness. EXTRIMITY: No edema, no cyanosis or clubbing. PSYCH: Cooperative. - Constitutional Vitals: Vital Signs - 12hr 01/01/21 01/01/21 01/01/21 07:22 10:54 14:30 Temperature 97.9 F 101.3 F H 97.9 F Pulse Rate 65 70 72 Respiratory 18 20 18 Rate Blood Pressure 137/89 136/88 124/80 O2 Sat by Pulse 97 97 94 Oximetry - Labs CBC & Chem 7: 12/31/20 07:57 01/01/21 07:32 Labs: Abnormal lab results 01/01/21 Range/Units 07:32 Glucose 104 H (75-100) mg/dL
--- NOTE | 2021-01-01 17:34 | Progress Note ---
Assessment and Plan Acute appendicitis -General surgeon consulted in the ER -Patient was given IV fluid, IV Dilaudid, started on empirically on iv Zosyn -s/p emergent appendectomy with TESSA drain -Continue to follow clinically, advance to full liquid diet -Mild hyponatremia, continue IV fluid Abdominal pain, nausea and vomiting -Due to acute appendicitis, treat with IV analgesic, IV antiemetic -General surgery consulted for appendectomy SIRS, due to acute appendicitis, continue empiric Zosyn for now L3-L4 vertebral body lesion, ORDERED MRI of the lumbar spine for further characterization -MRI suggestive of chronic degenerative disease DVT prophylaxis, will provide Lovenox following surgery CT abdomen pelvis: 1. Dilated and inflamed appendix containing several appendicoliths. There are nearby inflamed loops of small bowel in the right lower quadrant suggesting enteritis. It is uncertain if the appendiceal inflammation represents primary appendicitis versus reactive inflammation from the adjacent small bowel process. 2. Degenerative change at L3-4 with associated endplate irregularity and prominent lucent lesions seen in both the L3 and L4 vertebral body, many of which appear contiguous with the disc space. These may reflect prominent Schmorl's nodes, though recommend correlation for focal tenderness in this area. If there is focal clinical concern, an MRI of the lumbar spine could be performed for further characterization. 3. Hepatic steatosis. MRI LUMBER SPINE: 1. There is notable irregularity of the L3-4 disc space and adjacent vertebral bodies which correlates with the earlier CT of abdomen of 12/30/2020. However, the heterogeneous signal would be more indicative of chronic degenerative process with only minimal edema. 2. There are milder degenerative the changes involving lumbar spine as detailed above without significant stenosis. 3. The findings correlate with the earlier CT demonstrating inflammatory changes within the visualized right lower quadrant and along the right psoas muscle as described. Daily clinical course: 12/31: Continue clear liquid diet, per general surgeon patient is very highly likely to develop postoperative ileus. Plan for repeat abdominal scan tomorrow. Continue clear liquid diet, empiric antibiotics. 01/01: Advance to full liquid diet today, if tolerates well possible DC tomorrow. Plan to pull down TESSA drain before discharge Subjective Date of service: 01/01/21 Interval history: Patient seen and examined. Medical records and medication list reviewed. No acute event overnight noted by the RN. Patient denies any chest pain or difficulty breathing. Patient is tolerating clear liquid diet. Complains of abdominal fullness, discussed with general surgeon Discussed plan of care at bedside with patient. Objective - Exam Narrative Exam: GENERAL: well-developed and well-nourished male lying on bed appeared to be in no discomfort. HEENT: Normocephalic. Atraumatic. No conjunctival congestion or icterus. Patient has moist mucous membranes. NECK: Supple. Trachea midline. CHEST/LUNGS: Clear to auscultated bilaterally, breathing nonlabored. No wheezes crackles or rhonchi. HEART/CARDIOVASCULAR: Regular in rate and rhythm. S1 and S2 positive. ABDOMEN: Abdomen is soft. Patient has normal bowel sounds. SKIN: There is no rash. Warm and dry. NEURO: No focal motor deficit. Follows command. MUSCULOSKELETAL: No joint effusion or tenderness. EXTRIMITY: No edema, no cyanosis or clubbing. PSYCH: Cooperative. - Constitutional Vitals: Vital Signs - 12hr 01/01/21 01/01/21 01/01/21 07:22 10:54 14:30 Temperature 97.9 F 101.3 F H 97.9 F Pulse Rate 65 70 72 Respiratory 18 20 18 Rate Blood Pressure 137/89 136/88 124/80 O2 Sat by Pulse 97 97 94 Oximetry - Labs CBC & Chem 7: 12/31/20 07:57 01/01/21 07:32 Labs: Abnormal lab results 01/01/21 Range/Units 07:32 Glucose 104 H (75-100) mg/dL
[2021-01-02] MEDS: PIPERACIL/TAZOBACTA 4.5/NS 100 4.5 GM/100 ML VIAL IV SCH ×2 (00:21→01:56)
[2021-01-02] MEDS: D5W/0.45% NACL/KCL 20 MEQ 20 MEQ/1,000 ML BAG IV SCH (02:38)
[2021-01-02] MEDS: KETOROLAC 30 MG/1 ML INJ IV SCH (07:48)
[2021-01-02 08:15] VITALS: BP 132/86
--- NOTE | 2021-01-02 09:59 | Progress Note ---
Assessment and Plan POD#3 s/p lap appy for acute suppurative appendicitis. Stable and afebrile last 24 hours. Clinically resolved ileus. Drain is removed. Pt can be discharged to home today and follow up in the office in two weeks in the office with me. call to make an appointment [phone] Pt can advance diet as tolerated and shower. Subjective Date of service: 01/02/21 Patient Reports: Positive: no new complaints, feels better, pain is less, tolerating liquids well. Negative: nausea (no acute events overnight), vomiting Objective Vital Signs - 12hr 01/01/21 01/01/21 01/02/21 22:00 23:13 04:57 Temperature 98.6 F 98.3 F Pulse Rate 66 58 L Respiratory 18 18 Rate Respiratory 17 Rate [Abdomen] Blood Pressure Blood Pressure 125/75 131/87 [Left] O2 Sat by Pulse 95 93 Oximetry 01/02/21 01/02/21 07:44 07:48 Temperature 97.7 F Pulse Rate 50 L Respiratory 18 17 Rate Respiratory Rate [Abdomen] Blood Pressure 132/86 Blood Pressure [Left] O2 Sat by Pulse 96 Oximetry - General physical appearance well developed, no distress, no pain - Respiratory normal expansion, normal respiratory effort - Abdomen soft, not distended, other (incisions c/d/i, appropriately tender to palpation, small amount of serous fluid in drain) - Labs 12/31/20 07:57 01/01/21 07:32
== END 2021-01-02 13:15 | disposition home or self-care (01) | DRG 342 ==
LOC: ED 03:13 → 3B-SURG 06:15
PROVIDERS: ADMIT Internal Medicine Geriatric Medicine; ATTEND Internal Medicine
PROC: 0DTJ4ZZ Resection of Appendix, Percutaneous Endoscopic Approach (ICD-10-PCS; principal; 2020-12-30)
DX: K35.80 Unspecified acute appendicitis (principal); E87.1 Hypo-osmolality and hyponatremia; R65.10 Systemic inflammatory response syndrome (SIRS) of non-infectious origin without acute organ dysfunction; K52.9 Noninfective gastroenteritis and colitis, unspecified; Z87.891 Personal history of nicotine dependence
CPT/HCPCS: 36415; 72148; 74177; 80048; 80053; 83690; 85025; 85610; 85730; 88304; G0378; A4217; J0330; J1100; J1170; J1885; J2270; J2405; J2543; J2704; J2710; J7030; J7120; Q9967